=== PATIENT | male | born 1995 | race Two or more races ===

== ENCOUNTER 2016-08-15 06:43 | Emergency (ER) | payer MEDICAID ==
[~2016-08-15] VITALS: Ht 170.2 cm; Wt 77.7 kg
[2016-08-15 06:55] VITALS: BP 127/92
[2016-08-15] MEDS ORDERED: TETRACAINE HCL 0.5% OPTH(EYE) SOLN 4ML RIGHTEYE ONE (08:00)
[2016-08-15] MEDS ORDERED: FLUORESCEIN SOD 1 MG TEST STRIP RIGHTEYE ONE (08:00)
== END 2016-08-15 08:40 | disposition home or self-care (01) ==
LOC: ER 06:43
DX: T15.11XA Foreign body in conjunctival sac, right eye, initial encounter (principal); X58.XXXA Exposure to other specified factors, initial encounter; Y93.89 Activity, other specified; Y99.8 Other external cause status; Y92.89 Other specified places as the place of occurrence of the external cause
CPT/HCPCS: 65205; 65222